=== PATIENT | female | born 1950 | race Caucasian/White ===

== ENCOUNTER 2017-04-13 19:46 | Emergency (ER) | payer OTHER ==
[~2017-04-13] VITALS: Ht 157.5 cm; Wt 96.5 kg
[~2017-04-13 19:46] MED LIST: AMBIEN CR12.5 MG PO; CONCERTA36 MG PO; COQ-10100 MG PO; DICLOFENAC SOD100 GM TP; DOXYCYCLINE HY100 MG PO; FEXOFENADINE H180 MG PO; FLEXERIL10 MG PO; GLUCOPHAGE500 MG PO; HYDROCODON-ACE1 EAC9 PO; HYDROCODON-ACE1 EACH PO; JANUVIA100 MG PO; KRILL OIL500 MG PO; LEVOTHYROXINE100 MCG PO; LORAZEPAM1 MG PO; LYRICA75 MG PO; MICARDIS HCT1 TABLET PO; PERCOCET 5/31 TABLET PO; PROAIR HFA8.5 GM IH; PROMETHAZINE HC25 M1 PO; SYNTHROID112 MCG PO; VALTREX1000 MG PO; VITAMIN D-32000 UNI2 PO; ZYRTEC10 M3 PO
[2017-04-13 21:04] LABS: ADD MIUA? NO; BILIRUBIN NEGATIVE; BLOOD NEGATIVE; COLOR YELLOW ((YELLOW)); GLUCOSE (STRIP) NEGATIVE; KETONES NEGATIVE; LEUKOCYTES NEGATIVE; NITRITE NEGATIVE; PROTEIN (STRIP) 30; SPECIFIC GRAVITY 1.011 (1.000-1.030); UROBILINOGEN 0.2 MG/DL (0.2-1.0)
[2017-04-13 21:10] LABS: EOSINOPHIL (%) 1.1 % (0-5); EOSINOPHIL COUNT 0.2 K/uL (0-0.3); HEMATOCRIT 40.3 % (36.0-46.0); IMMATURE GRANULOCYTE (%) 0.5 % (0.0-0.7); IMMATURE GRANULOCYTE COUNT 0.1 K/uL; INSTRUMENT ABS NEUTROPHIL CT 15.2 K/uL; LYMPHOCYTE COUNT 2.9 K/uL (1.0-2.8); MCH 30.8 PG (29.0-34.0); MCHC 32.8 G/DL (30.0-36.0); MCV 93.9 FL (83-99); MEAN PLAT.VOLUME 10.5 uM^3 (9.5-12.4); MONOCYTE (%) 5.7 % (3-12); MONOCYTE COUNT 1.1 K/uL (0-0.8); NEUTROPHIL (%) 77.5 % (45-76); NEUTROPHIL COUNT 15.2 K/uL (1.8-6.4); PLATELET COUNT 278 K/uL (156-360); RBC DIS.WIDTH-CV 12.8 % (11.8-14.6); RED BLOOD COUNT 4.29 M/uL (3.80-5.20); WHITE BLOOD COUNT 19.6 K/uL (4.1-10.2)
[2017-04-13 21:21] LABS: CHLORIDE 97 mEq/L (99-109); POTASSIUM 3.9 mEq/L (3.7-5.4); SODIUM 136 mEq/L (136-147)
[2017-04-13 21:23] LABS: GLUCOSE 185 mg/dL (70-99)
[2017-04-13 21:24] LABS: ANION GAP 13 MEQ/L (2-14)
[2017-04-13 21:25] LABS: TOTAL BILIRUBIN 0.6 mg/dL (0.0-1.0)
[2017-04-13 21:26] LABS: ALKALINE PHOSPHATASE 77 IU/L (3-129)
[2017-04-13 21:27] LABS: GFR ESTIMATE (CALCULATED) 52 mL/min/
[2017-04-13 21:28] LABS: UREA NITROGEN (BUN) 13 mg/dL (9-23)
[2017-04-13 21:30] LABS: LIPASE 68 U/L (1.0-51.0)
[2017-04-13] MEDS ORDERED: PROMETHAZINE HC25 M1 PO (23:36)
[2017-04-13] MEDS ORDERED: PHENERGAN25 MG PR (23:36)
[2017-04-14 00:32] VITALS: BP 140/88
== END 2017-04-14 00:32 | disposition home or self-care (01) ==
LOC: EME 19:46
PROVIDERS: Physician Assistant
DX: R10.9 Unspecified abdominal pain (principal); R11.2 Nausea with vomiting, unspecified; D72.829 Elevated white blood cell count, unspecified; M79.7 Fibromyalgia; K21.9 Gastro-esophageal reflux disease without esophagitis; I10 Essential (primary) hypertension; E03.9 Hypothyroidism, unspecified; E11.9 Type 2 diabetes mellitus without complications; Z79.84 Long term (current) use of oral hypoglycemic drugs; Z87.891 Personal history of nicotine dependence
CPT/HCPCS: 74177; 80053; 81003; 83605; 83690; 85025; 93005; 99281; 99285; J2405; J7030; Q0169